=== PATIENT | female | born 1970 | race Caucasian/White ===

== ENCOUNTER 2022-07-20 13:38 | Emergency (ER) | payer MEDICARE, MEDICAID ==
[~2022-07-20] VITALS: Ht 160 cm; Wt 56.8 kg
[~2022-07-20 13:38] MED LIST: DULO-31 PO; NORG1TAB PO; VALA500T PO; ZOLP10TA5 PO
[2022-07-20 13:42] VITALS: BP 123/75
[2022-07-20] MEDS ORDERED: normal saline 1000ml 1,000 ML IV ONE (13:45)
[2022-07-20] MEDS ORDERED: ondansetron/PF 4mg/2ml inj IV ONE (15:15)
[2022-07-20] MEDS ORDERED: famotidine/PF 10 mg/ml inj IV ONE (15:15)
[2022-07-20] MEDS ORDERED: acetaminophen 325mg tablet PO ONE (15:15)
[2022-07-20] MEDS ORDERED: ketorolac trometh. 30mg/ml inj. IV ONE (15:15)
[2022-07-20] MEDS ORDERED: DEXA6TAB6 PO (15:38)
[2022-07-20] MEDS ORDERED: BUDE180A INH (15:38)
[2022-07-20] MEDS ORDERED: NIRM1TAB PO (15:38)
[2022-07-20] MEDS ORDERED: ALBU6.7H9 INH (15:38)
[2022-07-20] MEDS ORDERED: LORazepam 1 MG tablet PO ONE (16:00)
== END 2022-07-20 17:16 | disposition home or self-care (01) ==
LOC: ER 13:39
DX: U07.1 COVID-19 (principal); E78.00 Pure hypercholesterolemia, unspecified; K21.9 Gastro-esophageal reflux disease without esophagitis; G89.29 Other chronic pain; F31.9 Bipolar disorder, unspecified; Z56.0 Unemployment, unspecified; F15.10 Other stimulant abuse, uncomplicated; Z79.899 Other long term (current) drug therapy; Z88.5 Allergy status to narcotic agent
CPT/HCPCS: 71045; 87502; 87503; 87635; 96361; 96374; 96375; 99284; C9803; J1885; J2405; J3490; J7030; 99283

== ENCOUNTER 2024-07-15 17:52 | Emergency (ER) | payer MEDICARE, MEDICAID ==
[~2024-07-15] VITALS: Ht 160 cm; Wt 48.7 kg
[~2024-07-15 17:52] MED LIST changes: +ALBU6.7H14 INH; +BUDE180A INH; +DEXA6TAB6 PO; +NIRM1TAB PO
[2024-07-15 18:20] LABS: BILIRUBIN,URINE NEGATIVE (Neg); CLARITY,URINE CLEAR (Clear); COLOR,URINE YELLOW (Yellow); GLUCOSE, URINE NEGATIVE (Neg); KETONES,URINE NEGATIVE (Neg); LEUKOCYTE ESTERASE ,URINE NEGATIVE (Neg); NITRITES, URINE NEGATIVE (Neg); OCCULT BLOOD,URINE NEGATIVE (Neg); PH,URINE 6.5 (4.8-8.0); PROTEIN,URINE NEGATIVE (Neg); UROBILINOGEN,URINE 0.2 E.U/dL (0.2-1.0)
[2024-07-15 18:21] LABS: UA COLLECTION TYPE CLN CATCH MIDSTREAM
[2024-07-15 18:22] LABS: BASOPHILS % (AUTO) 0.3 % (0-1); EOSINOPHILS % (AUTO) 0.1 % (0-6); HEMATOCRIT 45.9 % (35.0-45.0); HEMOGLOBIN 15.1 g/dl (12.0-16.0); LYMPHOCYTES # (AUTO) 1.8 X10'3 (1.1-4.8); LYMPHOCYTES % (AUTO) 26.8 % (21-51); MEAN CORPUSCULAR HEMOGLOBIN 34.1 PG (27.0-31.0); MEAN CORPUSCULAR HGB CONC 32.9 g/dL (33.0-36.5); MEAN CORPUSCULAR VOLUME 103.5 FL (78-98); MONOCYTES # (AUTO) 0.5 X10'3 (0-0.9); MONOCYTES % (AUTO) 7.6 % (2-12); NEUTROPHILS # (AUTO) 4.5 X10'3 (1.8-7.7); NEUTROPHILS % (AUTO) 65.2 % (42-75); PLATELET COUNT 263 X10'3 (140-440); RED BLOOD COUNT 4.44 X10'6 (4.20-5.60); RED CELL DISTRIBUTION WIDTH 13.6 % (11.5-14.5); WHITE BLOOD COUNT 6.8 X10'3 (4.5-11.0)
[2024-07-15 18:25] LABS: URINE HCG NEGATIVE (NEG)
[2024-07-15 18:37] LABS: ALANINE AMINOTRANSFERASE 37 U/L (12-78); ALBUMIN/GLOBULIN RATIO 1.1 (1.1-1.5); ALKALINE PHOSPHATASE 165 IU/L (46-116); ANION GAP 10 (8-16); ASPARTATE AMINO TRANSFERASE 26 U/L (10-37); BILIRUBIN,TOTAL 0.4 MG/DL (0.1-1.0); BLOOD UREA NITROGEN 9 MG/DL (7-18); BUN/CREATININE RATIO 10.3 (10.0-20.0); CALCIUM 9.5 MG/DL (8.5-10.1); CHLORIDE 110 MMOL/L (99-107); CREATININE 0.87 MG/DL (0.40-0.90); GLUCOSE 104 MG/DL (70-104); LIPASE 39 U/L (16-77); POTASSIUM 3.2 MMOL/L (3.5-5.1); SODIUM 145 MMOL/L (135-145); TOTAL PROTEIN 7.5 G/DL (6.4-8.2); eCRCL 57 ML/MIN; eGFR 68 ML/MIN
[2024-07-15] MEDS: ondansetron/PF 4mg/2ml inj IV ONE (20:53)
[2024-07-15] MEDS: normal saline 1000ML IV soln IVB ONE (20:53)
[2024-07-15] MEDS: ketorolac trometh 15mg/ml vial 15 MG/ML ML IV ONE (20:54)
[2024-07-15] MEDS: acetaminophen 1,000mg/100ml IV 100 ML IV ONE (21:02)
[2024-07-15] MEDS: metoclopramide 5 mg/ml inj IV ONE (22:11)
[2024-07-15] MEDS: LORazepam 2 mg/ml vial IV ONE (23:02)
[2024-07-15] MEDS ORDERED: LORA-269 PO (23:52)
[2024-07-15] MEDS ORDERED: ONDA-245 PO (23:52)
[2024-07-16 00:29] VITALS: BP 121/50; PULSE 60; RESP 18; TEMP 98.1; O2SAT 99
== END 2024-07-16 00:26 | disposition home or self-care (01) ==
LOC: ER 17:53
DX: R11.2 Nausea with vomiting, unspecified (principal); R51.9 Headache, unspecified; R19.7 Diarrhea, unspecified; F15.90 Other stimulant use, unspecified, uncomplicated; E78.00 Pure hypercholesterolemia, unspecified; K21.9 Gastro-esophageal reflux disease without esophagitis; G89.29 Other chronic pain; M54.9 Dorsalgia, unspecified; F41.9 Anxiety disorder, unspecified; Z88.8 Allergy status to other drugs, medicaments and biological substances; Z91.041 Radiographic dye allergy status; Z79.899 Other long term (current) drug therapy; Z79.51 Long term (current) use of inhaled steroids; Z56.0 Unemployment, unspecified; Z20.822 Contact with and (suspected) exposure to COVID-19
CPT/HCPCS: 36415; 80053; 81003; 81025; 83690; 85025; 87502; 87503; 87811; 96361; 96374; 96375; 99285; J0131; J1885; J2060; J2405; J2765; J7030; 96365

== ENCOUNTER 2024-10-16 14:07 | Emergency (ER) | payer MEDICARE, MEDICAID ==
[~2024-10-16] VITALS: Ht 160 cm; Wt 50.7 kg
[~2024-10-16 14:07] MED LIST changes: -BUDE180A INH; +BUDE180A5 INH; +LORA-269 PO; +ONDA-245 PO
[2024-10-16 14:30] VITALS: BP 104/73; PULSE 62; RESP 18; O2SAT 98
[2024-10-16] MEDS ORDERED: HYDR-3965 PO (15:36)
[2024-10-16 15:57] VITALS: TEMP 98.1
== END 2024-10-16 16:01 | disposition home or self-care (01) ==
LOC: ER 14:07
DX: B02.30 Zoster ocular disease, unspecified (principal); E78.00 Pure hypercholesterolemia, unspecified; K21.9 Gastro-esophageal reflux disease without esophagitis; G89.29 Other chronic pain; M54.9 Dorsalgia, unspecified; F15.90 Other stimulant use, unspecified, uncomplicated; F41.9 Anxiety disorder, unspecified; F32.A Depression, unspecified; F17.210 Nicotine dependence, cigarettes, uncomplicated; Z56.0 Unemployment, unspecified; Z91.041 Radiographic dye allergy status; Z88.8 Allergy status to other drugs, medicaments and biological substances; Z79.899 Other long term (current) drug therapy; Z79.51 Long term (current) use of inhaled steroids
CPT/HCPCS: 99283

== ENCOUNTER 2025-04-30 11:59 | Emergency (ER) | payer MEDICARE, MEDICAID ==
[~2025-04-30] VITALS: Ht 160 cm; Wt 52.0 kg
--- NOTE | 2025-04-30 13:01 | Physician Documentation ---
History of Present Illness ~ General Chief Complaint: See Chief Complaint Stated Complaint: POSS TICKS Time Seen by MD: 12:20 Primary Medical Doctor: NONE Mode of Arrival: POV, Ambulatory History of Present Illness Initial Comments This is a 55-year-old female who presents with multiple concerns, patient reports "I think I was bit by a tick on my hand, I put Vaseline on it and it came off on" and my veins are too dark, and patient reporting to areas of redness and pruritus. Patient reports that she has had history of ophthalmologic shingles which she is being seen by clay caster for in his being referred to a specialist. Medication Reconciliation Allergies: Coded Allergies: Iodinated Contrast Media (Unverified Allergy, Intermediate, swelling, 04/30/25) meperidine (Verified Allergy, Intermediate, 04/30/25) Scheduled Albuterol Sulfate (Proventil Hfa), 2 PUFFS INH Q6H Budesonide (Pulmicort Flexhaler), 2 PUFFS INH Q12H Dexamethasone (Decadron), 1 TAB PO ONCE Duloxetine Hcl* (Cymbalta*), 120 MG PO QAM, (Reported) Lorazepam (Ativan), 1 TAB PO Q8H Nirmatrelvir/Ritonavir (Paxlovid Co-Pack (Eua)), 3 EACH PO BID Norgestimate-Ethinyl Estradiol* (Trinessa*), 1 TAB PO DAILY, (Reported) Ondansetron 8mg ODT (Ondansetron Odt), 1 TAB PO Q6H Triamcinolone Acetonide 0.1% Crm* (Kenalog 0.1% Crm*), 1 APPLIC TOP Q12H Valacyclovir Hcl (Valtrex), 500 MG PO DAILY, (Reported) Zolpidem Tartrate* (Ambien*), 10 MG PO HS, (Reported) Past Medical History Past Medical History: High Cholesterol, GERD, Chronic Back Pain, Anxiety, Depression Past Surgical History: other Alcohol Use: None Drug Use: methamphetamine Lives with: Family Lives In: Home Occupation: unemployed, disabled Review of Systems ROS As stated above in the HPI, otherwise all systems are reviewed and negative. Physical Exam Physical Exam Vital Signs: Temperature: 98.7, Source: Temporal, Heart Rate: 78, Respiratory Rate: 18, BP: 127/76, Pulse Oximetry: 100, Weight: 52.050 Oxygen Flow Rate: 0 Physical Exam VITALS: Reviewed and as above. GENERAL: Alert, nontoxic appearing, no apparent distress. HEENT: No facial swelling or erythema, EOMI RESPIRATORY: No increased work of breathing, no respiratory distress, speaking in full clear sentences SKIN: Single erythematous papule with excoriation to left upper arm, single erythematous papule with excoriation to left forearm, otherwise warm dry and no rash. Normal exam. No evidence of bites or injury to bilateral hands. Progress Results/Orders Results/Orders Vital Signs 04/30/25 04/30/25 04/30/25 12:05 12:19 13:20 Temp 98.7 98.7 Pulse 78 74 Resp 18 18 16 B/P (MAP) 127/76 123/83 Pulse Ox 100 100 O2 Flow Rate 0 Medical Decision Making Findings This 55-year-old female presented with concern for a tick bite and several areas of pruritic papules with additional concern for veins being to dark, physical exam was benign with two areas of pruritic papules identified, these areas are consistent with insect bite or an allergic contact dermatitis and do not appear to have complications such as cellulitis or abscess. There were no puncture wounds or other evidence of bites to the patient's hands where she noticed the tick, I suspect patient may have had a tick or another insect on her without a bite. I discussed with the patient home care instructions with prescribed topical corticosteroid for pruritic areas, patient provided return to care precautions which she verbalized understanding of. Patient is appropriate for outpatient follow up. Differential Diagnosis Tick bite, insect bite, contact dermatitis, cellulitis, abscess, allergic reaction, anaphylaxis, scabies, Departure Disposition: 01 HOME / SELF CARE / HOMELESS Impression: Primary Impression: Pruritic rash Condition: Improved Discharge Instructions: Insect Bite, Adult, [id number] Additional Instructions: You may use the prescribed steroid cream on the areas that itch. Follow up as scheduled with your clay caster. Please follow up with your primary care provider in the next few days. Please return to the emergency department for any new or worsening concerning symptoms. Referrals: NO PRIMARY CARE PROVIDER (PCP) Prescriptions Triamcinolone Acetonide 0.1% Crm* (Kenalog 0.1% Crm*) 1 Applic Tube 1 APPLIC TOP Q12H for 10 Days, #80 GM Prov: DEISI RALPH 04/30/25 Education Educated: Patient Educated regarding: diagnosis, treatment, prognosis, need for follow up Signature Scribe Signature: No scribe Attestation: The note accurately reflects work and decisions made by me.DORIAN Erazo 04/30/25 21:58 DEISI RALPH Apr 30, 2025 13:01
[2025-04-30] MEDS ORDERED: KEN0.1O TOP (13:05)
[2025-04-30 13:20] VITALS: BP 123/83; PULSE 74; RESP 16; TEMP 98.7; O2SAT 100
== END 2025-04-30 13:15 | disposition home or self-care (01) ==
LOC: ER 12:00
DX: L29.9 Pruritus, unspecified (principal); F15.90 Other stimulant use, unspecified, uncomplicated; E78.00 Pure hypercholesterolemia, unspecified; K21.9 Gastro-esophageal reflux disease without esophagitis; F41.9 Anxiety disorder, unspecified; F32.A Depression, unspecified; Z91.041 Radiographic dye allergy status; Z88.5 Allergy status to narcotic agent; Z79.899 Other long term (current) drug therapy; Z56.0 Unemployment, unspecified
CPT/HCPCS: 99283